=== PATIENT | male | born 1995 | race African-American/Black ===

== ENCOUNTER 2017-03-06 13:46 | Emergency (ER) | payer OTHER ==
[~2017-03-06] VITALS: Ht 177.8 cm; Wt 70.4 kg
[~2017-03-06 13:46] MED LIST: AUGMENTIN875 MG PO
[2017-03-06 16:47] VITALS: BP 142/92
== END 2017-03-06 16:47 | disposition home or self-care (01) ==
LOC: EME 13:46
PROC: 2W3QX1Z Immobilization of Right Lower Leg using Splint (ICD-10-PCS; principal; 2017-03-06)
DX: S92.101A Unspecified fracture of right talus, initial encounter for closed fracture (principal); W23.1XXA Caught, crushed, jammed, or pinched between stationary objects, initial encounter; W20.8XXA Other cause of strike by thrown, projected or falling object, initial encounter; Y92.59 Other trade areas as the place of occurrence of the external cause; Y99.0 Civilian activity done for income or pay
CPT/HCPCS: 73590; 73610; 73630; 99281; 99283